=== PATIENT | male | born 1995 | race Caucasian/White ===

== ENCOUNTER 2016-12-14 22:01 | Emergency (ER) | payer SELFPAY ==
[~2016-12-14] VITALS: Ht 167.6 cm; Wt 59.8 kg
[2016-12-14 22:12] VITALS: BP 131/81; PULSE 79; RESP 18; TEMP 98.9; O2SAT 98
[2016-12-14] MEDS ORDERED: TUMS500C CHEW (23:53)
[2016-12-14] MEDS ORDERED: PEPT262S PO (23:53)
--- NOTE | 2016-12-14 23:59 | PD ---
HPI Chief Complaint: GI Complaint Time Seen by Provider: 23:56 Travel History International Travel<30 days: No Contact w/Intl Traveler<30days: No Traveled to known affect area: No History of Present Illness HPI 21-year-old otherwise healthy male presents to the emergency department by private transportation for complaint of 3 weeks of intermittent nausea vomiting and epigastric pain and diarrhea. Patient states he started taking Pepto- Bismol for his abdominal pain and started noticing dark-like looking stool. Patient states over the past 3 weeks he thinks his lost approximately 5 pounds. Patient reports that he has been looking up his symptoms on the Internet and is concerned that he has an ulcer. Patient states based on the Internet recommendation he has followed [place] diet for the past 3 weeks. Patient denies any fever or chills. Patient denies any well water ingestion foreign travel or dietary indiscretion. Patient does not report others in his environment with similar symptoms. Patient denies any chronic medical conditions. Patient denies any previous surgeries. Patient has been taking nonsteroidal anti- inflammatory medications. Emesis is nonbilious coffee-ground or hematemesis. Patient rates discomfort as 6/10 in intensity. PFSH Past Medical History Narrative Medical Facial/jaw surgery; no tobacco use; nursing notes reviewed ?: Not Social History Alcohol Use: Yes Tobacco Use: No Substance Use: No Allergies-Medications (Allergen,Severity, Reaction): Coded Allergies: No Known Allergies (Unverified , 12/14/16) Reported Meds & Prescriptions Reported Meds & Active Scripts Active Reported Tums (Calcium Carbonate (Antacid)) 500 Mg Chew 500 Mg CHEW PRN Pepto-Bismol Liq (Bismuth Subsalicylate) 262 Mg/15 Ml Susp 30 Ml PO PRN Do not exceed 8 doses (240 mL or 16 tbsp) in 24 hours. Review of Systems Except as stated in HPI: all other systems reviewed are Neg General / Constitutional: No: Fever, Chills HENT: No: Congestion Cardiovascular: No: Chest Pain or Discomfort Respiratory: No: Shortness of Breath Gastrointestinal: Positive: Nausea, Vomiting, Diarrhea, Abdominal Pain Genitourinary: No: Dysuria, Flank Pain Musculoskeletal: No: Myalgias, Arthralgias Skin: No Rash Neurologic: No: Weakness, Dizziness, Syncope Psychiatric: Positive: Anxiety Endocrine: No: Heat Intolerance Hematologic/Lymphatic: No: Easy Bruising Physical Exam Narrative GENERAL: Well-developed well-nourished male mildly anxious in appearance and no respiratory distress. SKIN: Warm and dry. HEAD: Normocephalic. EYES: No scleral icterus. No injection or drainage. NECK: Supple, trachea midline. No JVD or lymphadenopathy. CARDIOVASCULAR: Regular rate and rhythm without murmurs, gallops, or rubs. RESPIRATORY: Breath sounds equal bilaterally. No accessory muscle use. GASTROINTESTINAL: Abdomen soft, reproducible epigastric tenderness to palpation without guarding or rebound, nondistended. Rectal exam: Normal sphincter tone black stool Hemoccult negative recent Pepto-Bismol use MUSCULOSKELETAL: No cyanosis, or edema. BACK: Nontender without obvious deformity. No CVA tenderness. Data Data Last Documented VS Vital Signs Date Time Temp Pulse Resp B/P Pulse Ox O2 Delivery O2 Flow Rate FiO2 12/15/16 01:52 78 16 111/54 99 Room Air 12/14/16 22:12 98.9 Orders Complete Blood Count With Diff (12/14/16 23:55) Comprehensive Metabolic Panel (12/14/16 23:55) Lipase (12/14/16 23:55) Urinalysis - C+S If Indicated (12/14/16 23:55) Iv Access Insert/Monitor (12/14/16 23:55) Ecg Monitoring (12/14/16 23:55) Oximetry (12/14/16 23:55) Sodium Chloride 0.9% Flush (Ns Flush) (12/15/16 00:00) Sodium Chlor 0.9% 1000 Ml Inj (Ns 1000 M (12/15/16 00:00) Ondansetron Inj (Zofran Inj) (12/15/16 00:00) Iohexol 350 Inj (Omnipaque 350 Inj) (12/15/16 01:03) Ct Abd/Pel W Iv Contrast(Rout) (12/14/16 23:55) Labs Laboratory Tests Test 12/14/16 12/15/16 23:50 01:30 White Blood Count 8.8 TH/MM3 Red Blood Count 5.49 MIL/MM3 Hemoglobin 15.9 GM/DL Hematocrit 48.8 % Mean Corpuscular Volume 89.0 FL Mean Corpuscular Hemoglobin 29.0 PG Mean Corpuscular Hemoglobin 32.6 % Concent Red Cell Distribution Width 11.7 % Platelet Count 234 TH/MM3 Mean Platelet Volume 9.4 FL Neutrophils (%) (Auto) 54.0 % Lymphocytes (%) (Auto) 31.6 % Monocytes (%) (Auto) 11.4 % Eosinophils (%) (Auto) 1.9 % Basophils (%) (Auto) 1.1 % Neutrophils # (Auto) 4.7 TH/MM3 Lymphocytes # (Auto) 2.8 TH/MM3 Monocytes # (Auto) 1.0 TH/MM3 Eosinophils # (Auto) 0.2 TH/MM3 Basophils # (Auto) 0.1 TH/MM3 CBC Comment DIFF FINAL Differential Comment Sodium Level 136 MEQ/L Potassium Level 3.7 MEQ/L Chloride Level 105 MEQ/L Carbon Dioxide Level 21.2 MEQ/L Anion Gap 10 MEQ/L Blood Urea Nitrogen 20 MG/DL Creatinine 1.30 MG/DL Estimat Glomerular Filtration 69 ML/MIN Rate Random Glucose 93 MG/DL Calcium Level 9.2 MG/DL Total Bilirubin 1.1 MG/DL Aspartate Amino Transf 36 U/L (AST/SGOT) Alanine Aminotransferase 25 U/L (ALT/SGPT) Alkaline Phosphatase 67 U/L Total Protein 8.0 GM/DL Albumin 5.0 GM/DL Lipase 170 U/L Urine Color YELLOW Urine Turbidity CLEAR Urine pH 6.5 Urine Specific [facility] GREATER THAN 1.035 Urine Protein 30 mg/dL Urine Glucose (UA) NEG mg/dL Urine Ketones 15 mg/dL Urine Occult Blood NEG Urine Nitrite NEG Urine Bilirubin NEG Urine Leukocyte Esterase NEG Urine Squamous Epithelial 0-5 /hpf Cells Urine Calcium Oxalate Crystals OCC /hpf Urine Mucus MOD /lpf Microscopic Urinalysis Comment CULT NOT INDICATED MDM Medical Decision Making Medical Screen Exam Complete: Yes Emergency Medical Condition: Yes Medical Record Reviewed: Yes Interpretation(s) Last Impressions Abdomen/Pelvis CT 12/14/16 [id number] Signed Impressions: Service Date/Time: Thursday, December 15, 2016 00:39 - CONCLUSION: Normal examination. Jermaine Schreiber MD CBC & BMP Diagram 12/14/16 23:50 Vital Signs Date Time Temp Pulse Resp B/P Pulse Ox O2 Delivery O2 Flow Rate FiO2 12/15/16 01:52 78 16 111/54 99 Room Air 12/14/16 22:12 98.9 79 18 131/81 98 Differential Diagnosis Abdominal pain, gastritis, peptic ulcer disease, pancreatitis, biliary colic, gastroenteritis, GI bleed Narrative Course IV access obtained specimens collected and sent for resulting patient administered Zofran 4 mg IV and 1 L normal saline HemaPrompt Point of Care Internal Pos. & Neg. Controls: Passed Fecal Specimen Occult Blood: Negative Diagnosis Primary Impression: Gastritis Qualified Code: K29.00 - Acute gastritis without hemorrhage, unspecified gastritis type Additional Impression: Gastroenteritis Referrals: Helmet Binder call for appointment Patient Instructions: General Instructions Additional Instructions: Increase fluid hydration Gradually resume normal dietary intake avoiding fried and fatty foods Do not take nonsteroidal anti-inflammatory medication such as ibuprofen/Advil/ Motrin or naproxen/Naprosyn/Aleve Take medications as prescribed Return to the emergency department for any concerns or change in condition Follow-up with your primary care provider 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
[2016-12-15] MEDS ORDERED: ONDANSETRON HCL 4 MG/2 ML VIAL IV PUSH ONE
[2016-12-15] MEDS ORDERED: SODIUM CHLORIDE 0.9% FLUSH 10 ML FLUSH IV FLUSH PRN
[2016-12-15 00:21] LABS: AUTOMATED NEUTROPHIL # 4.7 TH/MM3 (1.8-7.7); BASOPHIL # 0.1 TH/MM3 (0-0.2); BASOPHIL % 1.1 % (0.0-2.0); EOSINOPHIL # 0.2 TH/MM3 (0-0.4); EOSINOPHIL % 1.9 % (0.0-4.0); HEMATOCRIT 48.8 % (39.0-51.0); HEMO FLAGS DIFF FINAL; LYMPH % 31.6 % (9.0-44.0); LYMPHOCYTE # 2.8 TH/MM3 (1.0-4.8); MEAN CORPUSCULAR HGB CONC 32.6 % (32.0-36.0); MONO % 11.4 % (0.0-8.0); PLATELET COUNT 234 TH/MM3 (150-450); RED BLOOD COUNT 5.49 MIL/MM3 (4.50-5.90); RED CELL DISTRIBUTION WIDTH 11.7 % (11.6-17.2); WHITE BLOOD COUNT 8.8 TH/MM3 (4.0-11.0)
[2016-12-15 00:22] LABS: CHLORIDE 105 MEQ/L (98-107); POTASSIUM 3.7 MEQ/L (3.5-5.1); SODIUM (NA) 136 MEQ/L (136-145)
[2016-12-15 00:25] LABS: ANION GAP 10 MEQ/L (5-15); BICARBONATE 21.2 MEQ/L (21.0-32.0); BLOOD UREA NITROGEN 20 MG/DL (7-18)
[2016-12-15 00:28] LABS: ALT (GPT) 25 U/L (12-78); AST (GOT) 36 U/L (15-37); GLOMERULAR FILTRATION RATE 69 ML/MIN (>89)
[2016-12-15 00:30] LABS: TOTAL BILIRUBIN ADULT 1.1 MG/DL (0.2-1.0)
[2016-12-15 00:31] LABS: ALKALINE PHOSPHATASE 67 U/L (45-117)
[2016-12-15] MEDS ORDERED: IOHEXOL 350 MG/ML 10 ML VIAL (for RAD DIAG) IV ONE (01:03)
--- NOTE | 2016-12-15 01:09 | RADRPT ---
EXAM DATE/TIME: 12/15/2016 00:39 [facility] COMPARISON: No previous studies available for comparison. INDICATIONS : Mid abdominal pain with nausea/vomiting for 3 weeks. IV CONTRAST: 66 cc Omnipaque 350 (iohexol) IV ORAL CONTRAST: No oral contrast ingested. RADIATION DOSE: 6.54 CTDIvol (mGy) MEDICAL HISTORY : None SURGICAL HISTORY : None. ENCOUNTER: Initial ACUITY: 3 weeks PAIN SCALE: 6/10 LOCATION: Bilateral upper quadrant TECHNIQUE: Volumetric scanning of the abdomen and pelvis was performed. Using automated exposure control and ad justment of the mA and/or kV according to patient size, radiation dose was kept as low as reasonably achievable to obtain optimal diagnostic quality images. DICOM format image data is available electro nically for review and comparison. FINDINGS: LOWER LUNGS: The visualized lower lungs are clear. LIVER: Homogeneous density without lesion. There is no dilation of the biliary tree. No calcified gallston es. SPLEEN: Normal size without lesion. PANCREAS: Within normal limits. KIDNEYS: Normal in size and shape. There is no mass, stone or hydronephrosis. ADRENAL GLANDS: Within normal limits. VASCULAR: There is no aortic aneurysm. BOWEL/MESENTERY: The stomach, small bowel, and colon demonstrate no acute abnormality. There is no free intraperitone al air or fluid. ABDOMINAL WALL: Within normal limits. RETROPERITONEUM: There is no lymphadenopathy. BLADDER: No wall thickening or mass. REPRODUCTIVE: Within normal limits. INGUINAL: There is no lymphadenopathy or hernia. MUSCULOSKELETAL: Within normal limits for patient age. CONCLUSION: Normal examination. Jermaine Schreiber MD on December 15, 2016 at 1:07 Board Certified Radiologist. This report was verified electronically.
[2016-12-15 01:32] LABS: BLOOD, URINE NEG (NEG); GLUCOSE,URINE NEG (NEG); KETONE, URINE 15 mg/dL (NEG); NITRITE,URINE NEG (NEG); PH, URINE 6.5 (5.0-8.5)
[2016-12-15 01:49] LABS: URINE COLOR YELLOW (YELLW/STRAW)
[2016-12-15 01:50] LABS: MUCUS URINE MOD /lpf (OCC); SQUAMOUS EPITHELIAL CELL URINE 0-5 /hpf (0-5)
[2016-12-15 01:51] LABS: CALCIUM OXALATE CRYSTALS,URINE OCC /hpf
[2016-12-15 01:52] VITALS: BP 111/54; PULSE 78; RESP 16; O2SAT 99
[2016-12-15 01:52] LABS: COMMENT (UR) CULT NOT INDICATED; CULTURE IF INDICATED CULT NOT INDICATED
[2016-12-15] MEDS ORDERED: PROT40TA PO (01:55)
[2016-12-15] MEDS ORDERED: ZOFR4TAB3 SL (01:55)
[2016-12-15] MEDS ORDERED: SODIUM CHLOR 0.9% 1000 ML INJ 1,000 ML IV ONE ×2 (02:00)
[2016-12-15 02:57] VITALS: BP 115/68
== END 2016-12-15 03:01 | disposition home or self-care (01) ==
LOC: PHED 22:01
DX: K29.00 Acute gastritis without bleeding (principal); K52.9 Noninfective gastroenteritis and colitis, unspecified
CPT/HCPCS: 74177; 80053; 81001; 83690; 85025; 96361; 96374; 99285; J2405; J7030; Q9967